=== PATIENT | female | born 1940 | race Caucasian/White ===

== ENCOUNTER 2020-12-29 19:33 | Inpatient (IN) | payer MEDICARE, OTHER ==
[2020-12-29] MEDS ORDERED: Acetaminophen 500 MG TAB ONE (23:22)
[2020-12-29] MEDS ORDERED: Boostrix 0.5 ML (Tdap) VIAL ONE (23:23)
[2020-12-30] MEDS ORDERED: Senokot S 8.6-50 MG TAB PO PRN (02:11)
[2020-12-30] MEDS ORDERED: HYDROcodone/Acetaminophen 5/325 mg Tablet PO PRN (02:11)
[2020-12-30] MEDS: Acetaminophen 325 MG TAB PO PRN ×2 (03:36→08:03)
[2020-12-30 05:18] LABS: Anion Gap 12 mmol/L (10-20); BUN (Urea Nitrogen) 12 mg/dL (9.8-20.1); Calc. Creatinine Clearance 73 mL/min (70-130); Calcium 9.2 mg/dL (7.8-10.44); Carbon Dioxide 26 mmol/L (23-31); Chloride 103 mmol/L (98-107); Glucose 115 mg/dL (83-110); Magnesium 1.9 mg/dL (1.6-2.6); Potassium 3.5 mmol/L (3.5-5.1); Sodium 137 mmol/L (136-145)
[2020-12-30 05:19] LABS: #Monocytes 0.5 10x3/uL (0.0-1.1); #Neutrophils 5.9 10x3/uL (1.5-8.4); %Basophils 0.5 % (0.0-2.0); %Eosinophils 0.2 % (0.0-6.0); %Monocytes 5.8 % (0.0-10.0); %Neutrophils 73.1 % (40.0-75.0); Hemoglobin 11.4 g/dL (12.0-15.5); Mean Corpuscular Hemoglobin 30.4 pg (27.0-33.0); Mean Platelet Volume 9.2 fl (7.4-10.4); Platelet Count 222 10x3/uL (150-450); RBC Distribution Width 13.4 % (11.5-14.5); Red Blood Cell (RBC) Count 3.75 10x6/uL (3.90-5.03)
[2020-12-30] MEDS: Enoxaparin Sodium 40 MG/0.4 ML SYRINGE SC SCH (08:04)
[2020-12-30 11:31] LABS: SARS-CoV-2 NAA Rapid Test Not Detected (NotDetected)
[2020-12-30] MEDS: traMADol HCl 50 MG TAB PO PRN ×3 (11:51→21:27)
[2020-12-30] MEDS ORDERED: Polyethylene Glycol 3350 17 GM Packet PO SCH (21:30)
[2020-12-31] MEDS: Acetaminophen 325 MG TAB PO PRN ×2 (04:20→16:39)
[2020-12-31 06:54] VITALS: BMI 23.1
[2020-12-31] MEDS: traMADol HCl 50 MG TAB PO PRN (08:11)
[2020-12-31] MEDS: Enoxaparin Sodium 40 MG/0.4 ML SYRINGE SC SCH (08:12)
[2020-12-31] MEDS: Polyethylene Glycol 3350 17 GM Packet PO SCH (16:39)
[2020-12-31] MEDS ORDERED: Atorvastatin Calcium 20 MG TAB PO SCH (21:00)
[2021-01-01] MEDS: Acetaminophen 325 MG TAB PO PRN ×3 (02:56→19:26)
[2021-01-01 05:52] LABS: #Eosinphils 0.2 10x3/uL (0.0-0.5); #Monocytes 0.6 10x3/uL (0.0-1.1); #Neutrophils 4.3 10x3/uL (1.5-8.4); %Basophils 0.4 % (0.0-2.0); %Lymphocytes 24.1 % (18.0-47.0); %Monocytes 8.1 % (0.0-10.0); Mean Corpuscular HGB CONC 33.1 g/dL (32.0-36.0); Mean Corpuscular Hemoglobin 30.1 pg (27.0-33.0); Mean Corpuscular Volume 90.7 fl (81.6-98.3); Mean Platelet Volume 9.2 fl (7.4-10.4); Platelet Count 214 10x3/uL (150-450); RBC Distribution Width 13.5 % (11.5-14.5); Red Blood Cell (RBC) Count 3.66 10x6/uL (3.90-5.03); White Blood Cell (WBC) Count 6.8 10x3/uL (3.5-10.5)
[2021-01-01 05:56] LABS: Anion Gap 11 mmol/L (10-20); BUN (Urea Nitrogen) 8 mg/dL (9.8-20.1); Calc. Creatinine Clearance 73 mL/min (70-130); Calcium 9.1 mg/dL (7.8-10.44); Carbon Dioxide 27 mmol/L (23-31); Chloride 101 mmol/L (98-107); Glucose 102 mg/dL (83-110); Potassium 3.9 mmol/L (3.5-5.1); Sodium 135 mmol/L (136-145)
[2021-01-01] MEDS ORDERED: FLAXSEED OIL 1000 MG PO SCH (09:00)
[2021-01-01] MEDS ORDERED: Lutein [Lutein] 20 MG Capsule PO SCH (09:00)
[2021-01-01] MEDS ORDERED: Polyethylene Glycol 3350 17 GM Packet PO SCH (09:00)
[2021-01-01] MEDS ORDERED: Calcium Carbonate 500 MG ChewTAB PO SCH (09:00)
[2021-01-01] MEDS ORDERED: Calcium Carbonate 500 MG TAB PO SCH (09:00)
[2021-01-01] MEDS: Enoxaparin Sodium 40 MG/0.4 ML SYRINGE SC SCH (11:04)
[2021-01-01 15:31] VITALS: BP 120/76
[2021-01-01 15:39] VITALS: TEMP 98.2
[2021-01-01] MEDS: Polyethylene Glycol 3350 17 GM Packet PO SCH (19:27)
== END 2021-01-01 21:05 | disposition admitted as inpatient to this hospital (09) | DRG 563 ==
LOC: CSHERS 19:33 → CSHTELE 12-30 02:52 → OBSVTOIN 01-01 15:43
PROVIDERS: ADMIT Family Medicine; ATTEND Hospitalist
DX: S82.001A Unspecified fracture of right patella, initial encounter for closed fracture (principal); S52.502A Unspecified fracture of the lower end of left radius, initial encounter for closed fracture; W19.XXXA Unspecified fall, initial encounter; E78.5 Hyperlipidemia, unspecified; Z88.1 Allergy status to other antibiotic agents; Z96.641 Presence of right artificial hip joint; Z20.822 Contact with and (suspected) exposure to COVID-19
CPT/HCPCS: 29125; 36415; 80048; 83735; 85025; 90471; 90715; 93005; 93010; J1650; U0002

== ENCOUNTER 2021-06-12 08:44 | Outpatient (CLI) | payer MEDICARE, OTHER | END 2021-06-12 08:45 | disposition home or self-care (01) | LOC: CSHMAMMO 08:44 | PROVIDERS: ATTEND Obstetrics & Gynecology | DX: Z12.31 Encounter for screening mammogram for malignant neoplasm of breast (principal); Z91.89 Other specified personal risk factors, not elsewhere classified | CPT/HCPCS: 77063; 77067 ==

== ENCOUNTER 2021-07-17 12:12 | Emergency (ER) | payer MEDICARE, OTHER | END 2021-07-17 14:46 | disposition home or self-care (01) | LOC: CSHERS 12:12 | DX: S80.211A Abrasion, right knee, initial encounter (principal); M25.461 Effusion, right knee; E78.00 Pure hypercholesterolemia, unspecified; I10 Essential (primary) hypertension; W19.XXXA Unspecified fall, initial encounter ==

== ENCOUNTER 2023-07-21 11:53 | Outpatient (CLI) | payer MEDICARE | END 2023-07-21 11:54 | disposition home or self-care (01) | LOC: CSHMAMMO 11:53 | PROVIDERS: ATTEND Obstetrics & Gynecology | DX: Z12.31 Encounter for screening mammogram for malignant neoplasm of breast (principal); Z91.89 Other specified personal risk factors, not elsewhere classified | CPT/HCPCS: 77063; 77067 ==